=== PATIENT | female | born 1970 | race Caucasian/White ===

== ENCOUNTER 2016-04-18 11:28 | Day surgery (SDC) | payer OTHER ==
[~2016-04-18] VITALS: Ht 160 cm; Wt 96.0 kg
[2016-04-18] VITALS (10 sets, daily range): BP systolic 99–130; BP diastolic 49–77; PULSE 64–102; RESP 16–26; O2SAT 94–99
[~2016-04-18 11:28] MED LIST: ATOR20TA PO; BUSP5TAB3 PO; CHOL10008 PO; FLUT16SP NS; FLUV50TA3 PO; KLO5T PO; Lactated Ringer's 1,000 ML IV SCH; OXCA300T5 PO; Sodium Chloride LOK Flush 10 mL Syringe IVFLUSH SCH
[2016-04-18] MEDS ORDERED: Neostigmine 1 mg/mL 5 mL Inj ONE (11:29)
[2016-04-18] MEDS ORDERED: Propofol 10,000 mCg/mL 20 mL Inj ONE (11:29)
[2016-04-18] MEDS ORDERED: fentaNYL-PF 50 mCg/mL 2 mL Inj ONE (11:29)
[2016-04-18] MEDS ORDERED: Rocuronium 10 mg/mL 5 mL Inj ONE (11:29)
[2016-04-18] MEDS ORDERED: Ondansetron 2 mg/mL 2 mL Inj ONE (11:29)
[2016-04-18] MEDS ORDERED: MetoCLOpramide 5 mg/mL 2 mL Inj ONE (11:29)
[2016-04-18] MEDS ORDERED: Glycopyrrolate 0.2 mg/mL 5 mL Inj ONE (11:29)
[2016-04-18] MEDS ORDERED: Dexamethasone 4 mg/mL Inj ONE (11:29)
[2016-04-18] MEDS ORDERED: Lactated Ringer's 1,000 ML IV ONE (12:21)
[2016-04-18] MEDS ORDERED: Lactated Ringer's 500 ML IV PRN (14:36)
[2016-04-18] MEDS ORDERED: Lactated Ringer's 1,000 ML IV SCH (14:36)
--- NOTE | 2016-04-18 14:38 | PCM.HPANE ---
Patient Data Surgeon Admitting Provider: Attending Provider:Refugio Patel DO Primary Care Physician:Akash Espinosa DO Other Provider:Amada Chang Anesthesia Reason for Visit Right Knee Lipoma Ht/WT & BMI Height (Feet): 5 Height (Inches): 3 Weight (Kilograms): 96 Body Mass Index 37.00 Allergies Coded Allergies: asenapine (Verified Allergy, Intermediate, twitches, 04/14/16) Past Anesthesia History Anesthesia History: Denies:: Anesthesia Reactions, Fam Anesthesia Reaction, Fam Malignant Hypertherm, Malignant Hyperthermia Diabetes History Hx Diabetes?: No MRSA MRSA: No Medications Home Meds Incl Beta Traci: No Reported Medications Cholecalciferol (Vitamin D3) (Vitamin D3)1,000 Unit Tab.chew1,000 Unit PO 04/14/16 Oxcarbazepine (Trileptal)300 Mg [id number] Mg PO 30 Days 04/14/16 Fluvoxamine Maleate 50 Mg Wufmhr97 Mg PO HS Ref 0 04/14/16 Fluticasone Propionate (Fluticasone Propionate Nasal)16 Gm [place].susp1 [place] NS BID #16 GM Ref 0 04/14/16 Clonazepam 0.5 Mg Tablet0.5 Mg PO TID PRN For Anxiety Ref 0 04/14/16 Buspirone 5 Mg Tablet5 Mg PO DAILY Ref 0 04/14/16 Atorvastatin (Lipitor)20 Mg Hzcrur92 Mg PO DAILY Ref 0 04/14/16 Discontinued Reported Medications [citalopram] No Conflict Check20 Mg PO DAILY 09/05/11 [place] Carbonate-Expunged Drug, Do Not Renew 300 Mg Eeddyx922 Mg PO TID Take 1 capsule by mouth 3 times every day. 09/05/11 [multivitamin tab] No Conflict Check1 Tab PO DAILY No dosage given but to be taken with food. 09/05/11 [Lorazepam] No Conflict Check1 Mg PO BID 09/05/11 [place] GLUCONATE-Expunged Drug, Do Not Renew 324 Mg [id number] Mg PO TID 09/05/11 Ascorbic Acid (C-500)500 Mg Vywzxq470 Mg PO DAILY #1 09/05/11 [Triamcinolone acet/o] No Conflict Check55 Mcg NS DAILY 09/05/11 History History of ENT Problems?: No HEENT History: Positive for:: Sinus Problem (allergies) Denies:: Cataracts Dysphagia Hx of Heart Problems?: No Cardiovascular History: Positive for:: Coronary Artery Disease (HYPERLIDEDEMIA ) Hx of Respiratory Problem?: No Hx Neurologic Problems?: No Neurological History: Positive for:: Headaches Denies:: CVA Seizures Hx of GI Problems?: Yes Gastrointestinal History: Positive for:: Liver Disease (NONALCOHOLIC FATTY LIVER) Hx of Problems?: No Other Pertinent History: EXCESSIVE MENSTRUATION Female Hx: Denies:: Currently Endometriosis Skin History: Denies:: History Skin Disorders? Pressure Ulcers Hx Musculoskeletal Problems?: No Musculoskeletal History: Denies:: Back Injury Hx of Psycho/Social Problems?: Yes Psycho Social History: Positive for:: Anxiety Bipolar Disorder Hx Depression Denies:: Suicide Attempt Hx Surgeries?: Yes (CSECT X 2, KNEE LIPOMA) Hx Any Other Health Problems?: No Other History: Denies:: Cancer Endocrine Disease Hospitalization Thyroid Disease History Blood Transfusions: Denies:: Blood Transfusions Hx Diabetes: No Hx Alcohol Use: NoHx Substance Use: No Stop/Bang Risk Assessment Category Category 1A: Patient has history of documented sleep apnea, and HAS NOT received any narcotic, sedative or anesthesia administration during this stay. Category 1B: Patient has history of documented sleep apnea, and HAS received any narcotic , sedative or anesthesia administration during this stay Category 2: Patient has SUSPECTED Obstructive Sleep Apnea, and HAS received any narcotic , sedative or anesthesia administration during this stay. Category 3: Patient has SUSPECTED Obstructive Sleep Apnea and HAS NOT received narcotic, sedative or anesthesia administration during this stay. Category 4: Outpatient in Procedural Areas with known sleep apnea or who screen positive for High Risk via the STOP/BANG questionnaire. Exam Exam Vital Signs Vital Signs Date Time Temp Pulse Resp B/P Pulse Ox O2 Delivery O2 Flow Rate FiO2 04/18/16 12:15 36.8 74 16 130/77 97 Room Air General Appearance: Alert, Oriented X3, Cooperative HEENT/AIRWAY: MP 2 Lungs: Clear to Auscultation, Normal Air Movement Heart: Exam Unremarkable, Regular Rate/Rhythm, No Murmurs/Rubs/Gallops Meds/Labs/Diagnostics Admission Meds Current Medications Lactated Ringer's (Lr) 1,000 ml @ ud STK-MED ONCE IV Last administered on 04/18t 12:21; Start 04/18/16 at 12:21; Stop 04/18/16 at 12:22; Status DC Plan Impression Patient chart reviewed, patient interviewed and anesthestic plan with risks, benefits, and alternatives discussed, and informed consent obtained. NPO Status: confirmed before mn ASA Physical Status: ASA2 Mod Systemic Disease Anesthetic Support Modalities: [place] Scope Anesthetic Plan: GA Bene/Risks/Altern/Consents: Yes HP Complete Prior to Induction: Yes Refugio Peres MD Apr 18, 2016 13:34
[2016-04-18] MEDS ORDERED: MetoCLOpramide 5 mg/mL 2 mL Inj IVPUSH PRN (14:40)
[2016-04-18] MEDS ORDERED: EPHEDrine Sulfate 50 mg/mL Inj IVPUSH PRN (14:40)
[2016-04-18] MEDS ORDERED: HYDROmorphone 1 mg/mL Inj IVPUSH PRN (14:40)
[2016-04-18] MEDS ORDERED: Labetalol 5 mg/mL 4 mL Inj IV PRN (14:40)
[2016-04-18] MEDS ORDERED: fentaNYL-PF 50 mCg/mL 2 mL Inj IVPUSH PRN (14:40)
[2016-04-18] MEDS ORDERED: Ondansetron 2 mg/mL 2 mL Inj IVPUSH PRN (14:40)
[2016-04-18] MEDS ORDERED: Phenylephrine 10,000 mCg/mL Inj IVPUSH PRN (14:40)
[2016-04-18] MEDS ORDERED: hydrALAZINE 20 mg/mL Inj IVPUSH PRN (14:40)
[2016-04-18] MEDS ORDERED: Atropine 0.4 mg/mL Inj IVPUSH PRN (14:40)
[2016-04-18] MEDS ORDERED: hydrOXYzine Pamoate 25 mg Capsule PO PRN (15:00)
[2016-04-18] MEDS ORDERED: HYDROcodone-APAP 5-325 mg Tablet PO PRN (15:00)
--- NOTE | 2016-04-18 17:01 | PCM.ANEP1 ---
Post Anesthesia Phase 1 PACU Phase 1 Assessment Vital Signs Vital Signs Date Time Temp Pulse Resp B/P Pulse Ox O2 Delivery O2 Flow Rate FiO2 04/18/16 16:20 66 16 114/58 96 Room Air 04/18/16 15:35 70 16 118/67 95 Room Air 04/18/16 15:30 36.8 71 23 106/56 95 Room Air 04/18/16 15:25 76 23 101/52 95 Room Air 04/18/16 15:20 78 18 99/49 94 Room Air 04/18/16 15:15 83 26 104/62 94 Room Air 04/18/16 15:10 92 24 103/53 94 Room Air 04/18/16 15:05 102 23 121/57 99 Simple Mask 8 04/18/16 15:03 37.0 100 23 128/72 99 Simple Mask 8 04/18/16 12:15 36.8 74 16 130/77 97 Room Air Anesthetic Administered: GA Level of Alertness: Drowsy, not talking HERNÁNDEZ's with Equal Strength: Yes Pain: No Nausea or Vomiting: No Oxygen Delivery: Room Air Lungs: Clear to Auscultation, Normal Air Movement Dermatome Level: Full Sensation Refugio Peres MD Apr 18, 2016 17:01
--- NOTE | 2016-04-18 17:01 | PCM.ANEP2 ---
Post Anesthesia Evaluation ASA/CMS Post Anesthesia VS in Patient's Normal Range?: Yes Resp Stable; Airway Patent?: Yes CV Function & Hydration Stable: Yes Mental Status Recovered?: Yes Pain control Satisfactory?: Yes N/V Control Satisfactory?: Yes Refugio Peres MD Apr 18, 2016 17:01
--- NOTE | 2016-04-19 00:11 | OP ---
[address] [address] OPERATIVE REPORT PATIENT: LUIS ALBERTO CHRISTIANSON : 1970 MR#: [id number] ADMIT: 04/18/2016 JOB ID: [id number] CORRECTED REPORT: DATE OF SURGERY: 04/18/2016 PREOPERATIVE DIAGNOSIS(ES): Right knee lipoma x2. POSTOPERATIVE DIAGNOSIS(ES): Right knee lipoma x2. PROCEDURE: Right knee lipoma resection x2. SURGEON: Refugio Patel DO. SUPPLIER QUALITY SPECIALIST: Alfonso Knapp DO. INDICATIONS: The patient is a 45-year-old female with right knee bothersome lipomas. She had an MRI confirming the diagnosis and she wished to have these surgically removed. We discussed the risks, benefits and possible complications of surgery. All questions were answered and she wished to proceed. PROCEDURE IN DETAIL: The patient was brought to the operating room. She was given a preoperative general anesthetic and the right lower extremity was sterilely prepped and draped. She was placed into a lateral position with a guy bag. The anterior lipoma was addressed first and we used a tourniquet for hemostasis. A small incision was made over the lipoma and it was carefully dissected out. The wound was then irrigated and closed with 3-0 Vicryl and 4-0 nylon. The second procedure: Incision was made posteriorly over the knee over the lipoma and dissection was carefully carried through the subcutaneous tissue. The lipoma was then herniated out through the wound and was relatively large, measuring about 3 x 6 cm in size. This was removed. The wound was irrigated. Electrocautery was used for hemostasis and this was closed with 3-0 Vicryl and 4-0 nylon. Naropin was added as an adjunct local anesthetic. Sterile dressings were applied. Patient tolerated the procedure well. Blood loss was minimal. POSTOPERATIVE PROTOCOL: Have the patient weightbear to tolerance. Keep compression on her leg. Ice and elevate. Follow up in two weeks or sooner if needed. ADDITIONAL INFORMATION: The first anterior lipoma measured 0.5 x 1 cm in size and was relatively superficial, being about 0.5 cm deep to the skin. Addenda added by ALESHA 05/30/16 at 1:08pm
--- NOTE | 2016-04-20 10:54 | PATH ---
SURGICAL PATHOLOGY Attending Physician:Refugio Patel DO CASE STATUS: Signed Out PATIENT NAME: LUIS ALBERTO CHRISTIANSON PID: [id number] : 1970 DATE COLLECTED:04/18/2016 21:54 SPECIMEN: 1: Soft Tissue, Lipoma 2: Soft Tissue, Lipoma CLINICAL HISTORY: RIGHT KNEE MASSES 1). RIGHT KNEE LIPOMA ANTERIOR 2). RIGHT KNEE LIPOMA POSTERIOR FINAL DIAGNOSIS: 1.RIGHT KNEE LIPOMA, ANTERIOR: LIPOMA, NEGATIVE FOR ATYPIA. 2.RIGHT KNEE LIPOMA, POSTERIOR: LIPOMA, NEGATIVE FOR ATYPIA. ICD10 CODE D17.23 GROSS DESCRIPTION: The specimen is received in two formalin filled containers labeled with the patient's name. 1). The specimen a sublabeled "right knee lipoma anterior" and consists of 3 light yellow portions of soft tissue which aggregate to 1.3 x 0.6 x 0.4 CM inked blue. The specimen is sectioned into multiple pieces and entirely submitted in cassette 1A. 2). The specimen is sublabeled "right knee lipoma posterior" and consists of 2 light yellow-faria portions of soft tissue which aggregate to 3.5 x 2.0 x 1.0 CM. The specimen is inked blue. 3 sales account representative sections are submitted in cassette 2A. 04/18/2016 [facility] MICRO DESCRIPTION: See diagnosis. ICD-9 CODES: CPT CODES: 1: 72976 2: 07142 Electronically Signed Out Liu Chery MD [facility] Pathology [facility] [address], [place] [address] Technical component performed at [facility], [facility] [address], [place], [address]
[2016-06-26] MEDS ORDERED: LAMO25TA PO (15:22)
[2016-06-26] MEDS ORDERED: METF500T4 PO (15:22)
== END 2016-04-18 23:59 | disposition home or self-care (01) ==
LOC: SAS 11:28
PROVIDERS: ATTEND Orthopaedic Surgery
DX: D17.39 Benign lipomatous neoplasm of skin and subcutaneous tissue of other sites (principal); K76.0 Fatty (change of) liver, not elsewhere classified
CPT/HCPCS: 27327; 27337; J1100; J2405; J2710; J2765; J7120

== ENCOUNTER 2016-06-27 08:48 | Day surgery (SDC) | payer OTHER ==
[~2016-06-27] VITALS: Ht 162.6 cm; Wt 95.1 kg
[2016-06-27] VITALS (8 sets, daily range): BP systolic 114–155; BP diastolic 54–86; PULSE 2–80; RESP 16–22; O2SAT 96–99
[~2016-06-27 08:48] MED LIST changes: +Acetaminophen IV 1,000 MG in IV Premix 1 EACH IV ONE; +CeFAZolin Inj 2 GM in IV Premix 1 EACH IV ONE; +LAMO25TA PO; +METF500T4 PO; -Sodium Chloride LOK Flush 10 mL Syringe IVFLUSH SCH
[2016-06-27] MEDS ORDERED: fentaNYL-PF 50 mCg/mL 2 mL Inj ONE (08:49)
[2016-06-27] MEDS ORDERED: Rocuronium 10 mg/mL 5 mL Inj ONE ×2 (08:49)
[2016-06-27] MEDS ORDERED: EPHEDrine/NS 5 mg/mL 5 mL Syringe ONE ×2 (08:49)
[2016-06-27] MEDS ORDERED: Propofol 10,000 mCg/mL 20 mL Inj ONE ×2 (08:49)
[2016-06-27] MEDS ORDERED: Ondansetron 2 mg/mL 2 mL Inj ONE ×2 (08:49)
[2016-06-27] MEDS ORDERED: Glycopyrrolate 0.2 MG/ML 1mL Inj ONE (08:49)
[2016-06-27] MEDS ORDERED: Dexamethasone 4 mg/mL Inj ONE ×2 (08:49)
[2016-06-27] MEDS ORDERED: Neostigmine 1 mg/mL 10 mL Inj ONE ×2 (08:49)
[2016-06-27] MEDS ORDERED: Lactated Ringer's 1,000 ML IV ONE (10:03)
[2016-06-27 10:09] LABS: BASOPHILS % (AUTO) 0.4 % (0-3); EOSINOPHILS % (AUTO) 3.6 % (0-5); MONOCYTES % (AUTO) 4.6 % (4-12); Mean Corpuscular Hemoglobin 27.1 pg (27.0-35.0); Mean Corpuscular Volume 80.3 fL (81-100); NEUTROPHILS % (AUTO) 59.9 % (40-74); Platelet Count 180 bil/L (150-400)
[2016-06-27] MEDS ORDERED: Lactated Ringer's 500 ML IV PRN (11:24)
[2016-06-27] MEDS ORDERED: Lactated Ringer's 1,000 ML IV SCH (11:24)
--- NOTE | 2016-06-27 11:24 | PCM.HPANE ---
Patient Data Date of Service: Jun 27, 2016 (1123) Surgeon Admitting Provider: Attending Provider:Gerardo Carreon MD Primary Care Physician:Akash Espinosa DO Other Provider:Amada Chang Anesthesia Reason for Visit Abnormal Uterine Bleeding,Stress Incontinence ABNORMAL UTERINE BLEEDING,STRESS INCONTINENCE Ht/WT & BMI Height (Feet): 5 Height (Inches): 4.00 Weight (Kilograms): 95.1 Body Mass Index 35.00 Allergies Coded Allergies: asenapine (Verified Allergy, Intermediate, twitches, 04/14/16) Past Anesthesia History Anesthesia History: Denies:: Anesthesia Reactions, Fam Anesthesia Reaction, Fam Malignant Hypertherm, Malignant Hyperthermia Diabetes History Hx Diabetes?: Yes Type of Diabetes: Type II Glycemic Control: Oral Medication Current Bedside Blood Glucose: 108 MRSA MRSA: No Medications Hypertension Medication: No Home Meds Incl Beta Traci: No Reported Medications Metformin 500 Mg Yygjus837 Mg PO BID Ref 0 06/26/16 Lamotrigine 25 Mg Tkynfd67 Mg PO BID Ref 0 06/26/16 Cholecalciferol (Vitamin D3) (Vitamin D3)1,000 Unit Tab.chew1,000 Unit PO 04/14/16 Oxcarbazepine (Trileptal)300 Mg Eyubwj746 Mg PO 30 Days 04/14/16 Fluvoxamine Maleate 50 Mg Kxntyr69 Mg PO HS Ref 0 04/14/16 Fluticasone Propionate (Fluticasone Propionate Nasal)16 Gm [place].susp1 [place] NS BID #16 GM Ref 0 04/14/16 Clonazepam 0.5 Mg Tablet0.5 Mg PO TID PRN For Anxiety Ref 0 04/14/16 Buspirone 5 Mg Tablet5 Mg PO DAILY Ref 0 04/14/16 Atorvastatin (Lipitor)20 Mg Wsmwui05 Mg PO DAILY Ref 0 04/14/16 History History of ENT Problems?: No HEENT History: Positive for:: Sinus Problem (allergies) Denies:: Cataracts Dysphagia Hx of Heart Problems?: No Cardiovascular History: Denies:: AICD Abdominal Aortic Aneurism Atrial Fibrillation Edema Heart Murmur Hypertension Irregular Heartbeat Pacemaker Hx of Respiratory Problem?: No Respiratory History: Denies:: Asthma COPD Emphysema Oxygen Administration Pneumonia Tuberculosis Use of C-PAP Machine Use of Inhalers / NEBS Hx Neurologic Problems?: No Neurological History: Positive for:: Headaches Denies:: CVA Multiple Sclerosis Parkinson's Disease Seizures Hx of GI Problems?: Yes Gastrointestinal History: Positive for:: Liver Disease (non alcoholic fatty liver disease) Denies:: Gastroesphageal Reflux Hx of Problems?: Yes Genitourinary History: Denies:: Urinary Tract Infection Female Hx: Denies:: Currently Endometriosis Problems with Breasts? Skin History: Denies:: History Skin Disorders? Pressure Ulcers Hx Musculoskeletal Problems?: Yes Musculoskeletal History: Positive for:: Musculoskeletal Trauma (recent knee arthroscopy Apr 2016) Denies:: Back Injury Fibromyalgia Osteoarthritis Hx of Psycho/Social Problems?: Yes Psycho Social History: Positive for:: Anxiety Bipolar Disorder Hx Depression Denies:: Suicide Attempt Hx Surgeries?: Yes (CSECT X 2, KNEE LIPOMA) Hx Any Other Health Problems?: Yes Other History: Denies:: Cancer Endocrine Disease Hospitalization Thyroid Disease History Blood Transfusions: Denies:: Blood Transfusions Hx Diabetes: YesBedside Blood Glucose: 108 Hx Alcohol Use: NoHx Substance Use: No Smoking Status: Never Smoker Have You Smoked inLast 12 mo: No Stop/Bang S-Snoring: Do You Snore Loudly: No T-Tired: feel tired, fatigued: No O-Obsered: Observed not breath: No P-Blood Pressure: treated: No B- Body Mass Index > 35 kg/m2: Yes A- Age over 50: No N- Neck Large Circumference: No G- Gender Male: No GRAYSON Total Score: 1 GRAYSON Risk Assessment: Low Risk, <3 Yes Risk Assessment Category Category 1A: Patient has history of documented sleep apnea, and HAS NOT received any narcotic, sedative or anesthesia administration during this stay. Category 1B: Patient has history of documented sleep apnea, and HAS received any narcotic , sedative or anesthesia administration during this stay Category 2: Patient has SUSPECTED Obstructive Sleep Apnea, and HAS received any narcotic , sedative or anesthesia administration during this stay. Category 3: Patient has SUSPECTED Obstructive Sleep Apnea and HAS NOT received narcotic, sedative or anesthesia administration during this stay. Category 4: Outpatient in Procedural Areas with known sleep apnea or who screen positive for High Risk via the STOP/BANG questionnaire. Exam Exam Vital Signs Vital Signs Date Time Temp Pulse Resp B/P Pulse Ox O2 Delivery O2 Flow Rate FiO2 06/27/16 09:05 35.8 80 16 155/86 98 Room Air General Appearance: Alert, Oriented X3 HEENT/AIRWAY: MP 2, Neck Movement (full), Mouth Opening (limited) Lungs: Clear to Auscultation Heart: Exam Unremarkable Meds/Labs/Diagnostics Admission Meds Current Medications Lactated Ringer's (Lr) 1,000 ml @ ud STK-MED ONCE IV Last administered on 06/27t 10:03; Start 06/27/16 at 10:03; Stop 06/27/16 at 10:04; Status DC Bedside Blood Glucose: 108 Labs Test 06/27/16 10:00 06/27/16 10:30 White Blood Count 7.2th/mm3 (3.8-10.1) Red Blood Count 4.76mil/mm3 (3.90-5.20) Hemoglobin 12.9g/dL (12.0-15.6) Hematocrit 38.2% (35.0-46.0) Mean Corpuscular Volume 80.3fL (81-100) Mean Corpuscular Hemoglobin 27.1pg (27.0-35.0) Mean Corpuscular Hemoglobin Concent 33.8% (32.0-37.0) Red Cell Distribution Width 13.9% (12.3-15.4) Platelet Count 180bil/L (150-400) Neutrophils (%) (Auto) 59.9% (40-74) Lymphocytes (%) (Auto) 31.2% (14-46) Monocytes (%) (Auto) 4.6% (4-12) Eosinophils (%) (Auto) 3.6% (0-5) Basophils (%) (Auto) 0.4% (0-3) Sodium Level 141mEq/L (134-144) Potassium Level 4.1mEq/L (3.5-5.2) Chloride Level 102mEq/L (97-108) Carbon Dioxide Level 22mmol/L (18-29) Blood Urea Nitrogen 12mg/dL (6-24) Creatinine 0.60mg/dL (0.57-1.00) Estimat Glomerular Filtration Rate 154mL/min (>59) Glucose Level 108mg/dL (60-99) Calcium Level 9.1mg/dL (8.5-10.1) Plan Impression Patient chart reviewed, patient interviewed and anesthestic plan with risks, benefits, and alternatives discussed, and informed consent obtained. NPO Status: 06/26 at 1700 ASA Physical Status: ASA2 Mod Systemic Disease Anesthetic Plan: GA Bene/Risks/Altern/Consents: Yes HP Complete Prior to Induction: Yes Martín Gaviria MD Jun 27, 2016 11:24
[2016-06-27] MEDS ORDERED: EPHEDrine Sulfate 50 mg/mL Inj IVPUSH PRN (11:25)
[2016-06-27] MEDS ORDERED: Ondansetron 2 mg/mL 2 mL Inj IVPUSH PRN ×2 (11:25→14:30)
[2016-06-27] MEDS ORDERED: Dexamethasone 4 mg/mL Inj IVPUSH PRN (11:25)
[2016-06-27] MEDS ORDERED: MetoCLOpramide 5 mg/mL 2 mL Inj IVPUSH PRN ×2 (11:25→14:30)
[2016-06-27] MEDS ORDERED: Phenylephrine 10,000 mCg/mL Inj IVPUSH PRN (11:25)
[2016-06-27] MEDS ORDERED: HYDROmorphone 1 mg/mL Inj IVPUSH PRN (11:25)
[2016-06-27] MEDS ORDERED: Bupivacaine 0.5% 50 mL Inj INFILTRATE ONE (12:15)
[2016-06-27 12:20] LABS: COLOR,URINE YELLOW (YELLOW)
[2016-06-27 12:21] LABS: APPEARANCE,URINE HAZY (CLEAR,HAZY); OCCULT BLOOD,URINE SMALL (NEGATIVE); PH,URINE 5.5 (5.0-8.0); UROBILINOGEN,URINE NORMAL (NORMAL)
[2016-06-27] MEDS ORDERED: oxyCODONE-Acetamin 5-325 mg Tablet PO PRN (14:30)
[2016-06-27] MEDS ORDERED: diphenhydrAMINE 25 mg Capsule PO PRN (14:30)
--- NOTE | 2016-06-27 14:36 | PCM.SURGOP ---
Surgical Operative Report Date of Service: Jun 27, 2016 Pre Operative Diagnosis 1. Abnormal uterine bleeding Post Operative Diagnosis 1. Abnormal uterine bleeding Procedure: 1. Total laparoscopic hysterectomy with bilateral salpingectomy 2. Cystoscopy with bladder Surgeon and Radiation Monitor: Surgeon: Gerardo Carreon MD Assistants: Chanda Cordova was necessary for this procedure for her surgical expertise and exposure. Indication for Procedure 45-year-old 2 para 2 who has had a previous endometrial ablation and persistent abnormal uterine bleeding. Findings: Slightly enlarged boggy-appearing uterus. Normal-appearing ovaries bilaterally. The left ovary contained a simple appearing cyst that contained yellow straw-colored fluid. On cystoscopy the bladder was noted to be free of any defects or suture and there was bilateral spillage of urine from both ureters at the procedure. Procedure Details Patient was taken to the operating room where her general anesthesia was obtained without difficulty. She was placed in a lithotomy position in the [facility] and prepared and draped in the normal sterile fashion. A bivalve speculum was inserted into the patient's vagina and the cervix was identified and grasped with a single-tooth tenaculum and a [place] uterine manipulator was inserted without difficulty. A Young catheter was placed. Our attention was then turned patient's abdomen. The umbilicus was injected with half percent Marcaine with epinephrine. A varies needle was inserted directly into the patient's peritoneal cavity. Water drop test and needle aspirate was confirmatory and negative. A pneumoperitoneum was then obtained with CO2 gas to a pressure of 15 mmHg. A 5 mm skin incision was made with a scalpel at the base of the umbilicus and a 5 mm blunt trocar was inserted directly into the patient's peritoneal cavity using the Visiport function of the trocar. Survey of abdomen and pelvis noted as above. A right and left lower quadrant port site were marked off and skin was injected with half percent Marcaine with epinephrine. Two 5mm skin incisions were made with a scalpel and 5 mm blunt trochars were inserted under direct visualization. The patient was placed in 30 of Trendelenburg. The uterus was elevated. A total laparoscopic hysterectomy with bilateral salpingo- oophorectomy was performed using the [employer] cautery device. Both ureters were identified at the beginning of the procedure. The uterine ovarian ligaments were transected bilaterally and this incision was carried around to the round ligament. The round ligament was transected bilaterally. The anterior leaf of the broad ligament was then opened and carried anteriorly creating a bladder flap. The uterine arteries skeletonized bilaterally. They were cauterized and transected using the Thunderbeat cautery device. The V care cup was identified and the vagina was entered sharply with the Thunderbeat cautery device. This incision was carried around circumferentially freeing the uterus from the vagina. The uterus was then removed through the patient's vagina. The pelvis was irrigated with saline. The vaginal cuff was then reapproximated with a 2-0 V lock suture in a running fashion. Good hemostasis was assured. This completed the hysterectomy portion of the case. All instruments were removed from the patient's perineal cavity. The pneumoperitoneum was released and the patient given several deep inspiratory breath to help expel any excess CO2 gas. The skin incisions were reapproximated with 4-0 Monocryl in a subcuticular fashion and Dermabond applied. A cystoscopy of the bladder was then performed using a 70 cystoscope. The Young catheter was removed and a 70 cystoscope was inserted into the bladder. The bladder was distended with 300 mL's of normal saline. Survey of the bladder was performed and there was bilateral spillage of urine from both ureters at the end of procedure and the bladder was noted to be free of any sutures or defects. The cystoscope was then removed. All lap instrument and needle counts were correct 2 at the end of the procedure Complications There were no periprocedural complications identified. Surgical Specimen Removed: Yes Specimen sent to Pathology: Yes Surgical Specimen description: Uterus and bilateral fallopian tubes Anesthetic Plan: GA Grafts, Implants: None Output, Estimated Blood Loss: 100 Blood Administration during miranda: No Catheters: None Gerardo Carreon MD Jun 27, 2016 14:36
--- NOTE | 2016-06-27 14:37 | PCM.DIGYN ---
Surgical Discharge Instruction Dates of Hospitalization Date of Hospital Admission 06/27/16 Providers Admitting Physician: Primary Care Physician: Akash Espinosa DO Attending Physician: Gerardo Carreon MD Diagnosis at Time of Discharge Post-operative diagnosis status post total laparoscopic hysterectomy and bilateral salpingectomy Problems: Diet Discharge Diet: No restrictions Activity Discharge Activity-General: No lifting >10 pounds for 4-6 weeks Dressing and Incisional Care Hygiene: May shower, NO bathtub, hot tub or whirlpool Additional Instructions Discharge Instructions You have had an uncomplicated laparoscopic hysterectomy. Please call with any signs or symptoms of infection including malodorous vaginal discharge, severe pain, temperature greater than 100.5 degrees or heavy vaginal bleeding. Follow Up Plan Follow-up Provider (F9): Antonio Diana PharmD Follow-up appointment: Weeks (2) Call your provider for: Fever, Chills, Shortness of breath, Heavy vaginal bleeding, Increasing pain Chanda Cordova MD Jun 27, 2016 14:37
[2016-06-27] MEDS ORDERED: IBUP800T28 PO (14:39)
[2016-06-27] MEDS ORDERED: OXYC1TAB24 PO (14:39)
--- NOTE | 2016-06-27 14:39 | PCM.ANEP1 ---
Post Anesthesia Phase 1 PACU Phase 1 Assessment Date of Service: Jun 27, 2016 Vital Signs 37.1, 124/54, 71, 96%, 20 Vital Signs Date Time Temp Pulse Resp B/P Pulse Ox O2 Delivery O2 Flow Rate FiO2 06/27/16 09:05 35.8 80 16 155/86 98 Room Air Anesthetic Administered: GA Level of Alertness: Sleepy, easy to arouse HERNÁNDEZ's with Equal Strength: Yes Pain: No Nausea or Vomiting: No Oxygen Delivery: Simple Mask Lungs: Clear to Auscultation Dermatome Level: Full Sensation Summary uneventful Martín Chavis MD Jun 27, 2016 14:39
--- NOTE | 2016-06-27 14:39 | PCM.ANEP2 ---
Post Anesthesia Evaluation ASA/CMS Post Anesthesia VS in Patient's Normal Range?: Yes Resp Stable; Airway Patent?: Yes CV Function & Hydration Stable: Yes Mental Status Recovered?: Yes Pain control Satisfactory?: Yes N/V Control Satisfactory?: Yes Martín Gaviria MD Jun 27, 2016 14:39
[2016-06-27] MEDS: fentaNYL-PF 50 mCg/mL 2 mL Inj IVPUSH PRN ×2 (15:10→15:20)
[2016-06-27] MEDS: HYDROmorphone 1 mg/mL Inj IVPUSH PRN ×2 (15:10→15:20)
--- NOTE | 2016-06-29 11:04 | PATH ---
SURGICAL PATHOLOGY Attending Physician:Gerardo Carreon, CASE STATUS: Signed Out PATIENT NAME: LUIS ALBERTO CHRISTIANSON PID: [id number] : 1970 DATE COLLECTED:06/27/2016 00:00 SPECIMEN: Uterus +/- tubes/ovaries, except neoplastic, prolapse CLINICAL HISTORY: ABNORMAL UTERINE BLEEDING 1). UTERUS WITH BILATERAL FALLOPIAN TUBES FINAL DIAGNOSIS: 1.UTERUS WITH BILATERAL FALLOPIAN TUBES: MULTIPLE INTRAMURAL LEIOMYOMATA. NEGATIVE FOR DYSPLASIA AND MALIGNANCY. ICD10 CODE D25.1 GROSS DESCRIPTION: The specimen is received in formalin, labeled with the patient's name, sublabeled as uterus, right and left fallopian tubes and consists of a uterus (210 g, 5.7 cm AP, 11.9 cm SI, 7.2 cm ML) and 2 detached fimbriated fallopian tubes (tube #1: length-5.2 cm, diameter-up to 1.3 cm; tube #2: length-5.5 cm, diameter-up to 1.1 cm). The ovaries are absent. The cervix (3.7 cm AP, 4.3 cm and bile) has a round off, and patent endocervical canal. The endometrium (average thickness-0.1 cm) is faria and flat. The myometrium (thickness-up to 2.5 cm) is faria-white and contains multiple solid firm white whirled well-circumscribed homogenous nodules (0.5 x 0.4 x 0.2 cm-2.5 x 2.3 x 2.2 cm). The serosa is faria-pink smooth and shiny. The fallopian tubes have pale-faria smooth shiny serosa and pale-faria lumens. Fallopian tube #1 contains a silver colored metal clip with the proximal lumen dilated. Section code: (A-B) anterior cervix, bisected and submitted SI; (C-D) posterior cervix, bisected and submitted SI; (E, F) anterior endomyometrium; (G, H) posterior endomyometrium; (I) fallopian tube #1, serially sectioned, traveling sales representative; (J) fimbria #1, bivalved, entirely submitted; (K) fallopian tube #2, serially sectioned, traveling sales representative; (L) fimbria #2, bivalved, entirely submitted. 06/28/16 YOSSI MICRO DESCRIPTION: See diagnosis. ICD-9 CODES: CPT CODES: 1: 81037 Electronically Signed Out Monisha Keane MD [facility] Pathology [facility] [address], [place] [address] Technical component performed at [facility], [facility] [address], [place], [address]
== END 2016-06-27 23:59 | disposition home or self-care (01) ==
LOC: SAS 08:48
PROVIDERS: ATTEND Obstetrics & Gynecology
DX: D25.1 Intramural leiomyoma of uterus (principal); N94.6 Dysmenorrhea, unspecified; N39.3 Stress incontinence (female) (male); E11.9 Type 2 diabetes mellitus without complications; R51 Headache; Z79.899 Other long term (current) drug therapy
CPT/HCPCS: 36415; 58570; 80048; 80053; 81000; 85025; 87086; 88305; J0131; J0690; J1100; J1170; J1885; J2175; J2250; J2270; J2405; J2710; J3010; J7120